=== PATIENT | female | born 1995 | race Caucasian/White ===

== ENCOUNTER 2024-02-25 21:51 | Emergency (ER) | payer BC, OTHER ==
[~2024-02-25] VITALS: Ht 165.1 cm; Wt 66.2 kg
[2024-02-25 22:01] VITALS: BP_SYST 111; PULSE 78; RESP 16; TEMP 97.9; O2SAT 98
[2024-02-25 22:50] LABS: BASOPHILS # (AUTO) 0.2 K/uL (0.0-0.2); BASOPHILS % (AUTO) 2.3 % (0.0-2.0); EOSINOPHILS # (AUTO) 0.4 K/uL (0.0-0.4); EOSINOPHILS % (AUTO) 4.6 % (0.0-4.0); HEMATOCRIT 37.7 % (36-48); HEMOGLOBIN 13.1 g/dL (12.0-16.0); LYMPHOCYTES # (AUTO) 1.7 K/uL (1.0-5.5); LYMPHOCYTES % (AUTO) 19.8 % (20.5-51.5); MEAN CORPUSCULAR HEMOGLOBIN 31 pg (27-31); MEAN CORPUSCULAR HGB CONC 35 % (32-36); MEAN CORPUSCULAR VOLUME 88 fL (79.0-98.0); MONOCYTES # (AUTO) 0.5 K/uL (0.0-1.0); MONOCYTES % (AUTO) 5.7 % (1.7-9.3); NEUTROPHILS % (AUTO) 67.6 % (40.0-70.0); PLATELET COUNT (AUTO) 221 K/uL (130-430); RED BLOOD CELL COUNT(AUTO) 4.27 MIL/uL (4.2-6.2); RED CELL DISTRIBUTION WIDTH 12.6 % (9.0-15.0); WHITE BLOOD COUNT (AUTO) 8.8 K/uL (4.8-10.8)
[2024-02-25 23:15] LABS: ALBUMIN 4.2 g/dL (3.4-4.8); BILIRUBIN,DIRECT 0.1 mg/dL (0.0-0.3); CALCIUM 9.1 mg/dL (8.4-11.0); CREATININE 0.82 mg/dL (0.55-1.30); FREE T4 (FREE THYROXINE) 1.1 ng/dL (0.6-1.6); POTASSIUM 3.9 mmol/L (3.5-5.1); THYROID STIMULATING HORMONE 1.69 uIu/mL (0.34-4.82); TOTAL BILIRUBIN 0.7 mg/dL (0.0-1.0)
[2024-02-25] MEDS: MAG HYDROX/AL HYDROX/SIMETH 30 ML, DICYCLOMINE HCL 20 MG, LIDOCAINE VISCOUS 2% 15ML (PO... PO ONE (23:26)
[2024-02-26 00:30] LABS: BILIRUBIN,URINE NEGATIVE (NEGATIVE); BLOOD, URINE NEGATIVE (NEGATIVE); CLARITY/URINE CLEAR (CLEAR); COLOR,URINE YELLOW (YELLOW); GLUCOSE,URINE NEGATIVE (NEGATIVE); KETONES,URINE 2+ (NEGATIVE); LEUKOCYTE ESTERASE ,URINE TRACE (NEGATIVE); NITRITE, URINE NEGATIVE (NEGATIVE); PROTEIN URINE NEGATIVE (NEGATIVE); UROBILINOGEN,URINE 0.2 (0.2-1.0)
[2024-02-26] MEDS: ONDANSETRON 4 MG ODT TAB PO ONE (00:43)
[2024-02-26 00:51] LABS: BARBITURATE, URINE NEGATIVE (NEG <=200); BENZODIAZEPINE, URINE NEGATIVE (NEG <=150); CANNABINOID, URINE NEGATIVE (NEG <=50); COCAINE, URINE NEGATIVE (NEG <=150); METHAMPHETAMINES SCREEN,URINE NEGATIVE (NEG <=500); OPIATE, URINE NEGATIVE (NEG <=100); PHENCYCLIDINE SCREEN,URINE NEGATIVE (NEG <=25); URINE AMPHETAMINE NEGATIVE (NEG <=500); URINE METHADONE NEGATIVE (NEG <=200); URINE OXYCODONE SCREEN NEGATIVE (NEG <=100)
[2024-02-26 00:52] LABS: UR TRICYCLIC ANTIDEPRESSANTS NEGATIVE (NEG <=300)
[2024-02-26 01:00] LABS: BACTERIA,URINE None Seen /HPF (None Seen)
[2024-02-26] MEDS ORDERED: ASPIRIN 325 MG TABLET PO ONE (01:00)
[2024-02-26] MEDS ORDERED: LORA-259 PO (01:15)
[2024-02-26] MEDS: LORazepam 1 MG TABLET PO ONE (01:15)
[2024-02-26 01:30] VITALS: BP_SYST 111; PULSE 78; RESP 16; TEMP 97.9; O2SAT 98
== END 2024-02-26 01:30 | disposition home or self-care (01) ==
LOC: SED 21:51
DX: K58.8 Other irritable bowel syndrome (principal); R06.02 Shortness of breath; F41.9 Anxiety disorder, unspecified; R10.9 Unspecified abdominal pain; Z79.899 Other long term (current) drug therapy
CPT/HCPCS: 99285; 71045; 80307; 80076; 80048; 84439; 83690; 84443; 85025; 85379; 36415; 93005; 81025; 81001; Q0162; 81000; 81003; 81015; J2001

== ENCOUNTER 2024-03-27 10:04 | Emergency (ER) | payer BC ==
[~2024-03-27] VITALS: Ht 165.1 cm; Wt 63.5 kg
[~2024-03-27 10:04] MED LIST: LORA-259 PO
[2024-03-27 10:17] VITALS: BP_SYST 134; PULSE 80; RESP 17; TEMP 97.6; O2SAT 99
[2024-03-27 10:40] LABS: BASOPHILS % (AUTO) 0.6 % (0.0-2.0); EOSINOPHILS # (AUTO) 0.1 K/uL (0.0-0.4); EOSINOPHILS % (AUTO) 2.3 % (0.0-4.0); HEMOGLOBIN 14.2 g/dL (12.0-16.0); LYMPHOCYTES # (AUTO) 1.1 K/uL (1.0-5.5); LYMPHOCYTES % (AUTO) 16.6 % (20.5-51.5); MEAN CORPUSCULAR HEMOGLOBIN 30 pg (27-31); MEAN CORPUSCULAR HGB CONC 34 % (32-36); MEAN CORPUSCULAR VOLUME 89 fL (79.0-98.0); MONOCYTES # (AUTO) 0.4 K/uL (0.0-1.0); MONOCYTES % (AUTO) 6.2 % (1.7-9.3); NEUTROPHILS # (AUTO) 4.9 K/uL (1.8-7.7); NEUTROPHILS % (AUTO) 74.3 % (40.0-70.0); PLATELET COUNT (AUTO) 227 K/uL (130-430); RED CELL DISTRIBUTION WIDTH 12.7 % (9.0-15.0); WHITE BLOOD COUNT (AUTO) 6.5 K/uL (4.8-10.8)
[2024-03-27] MEDS: NACL 0.9% 1,000 ML IV ONE (10:41)
[2024-03-27] MEDS: ONDANSETRON HCL 4 MG/2 ML VIAL IVP ONE (10:59)
[2024-03-27 11:10] LABS: ALBUMIN 5.3 g/dL (3.4-4.8); BILIRUBIN,DIRECT 0.2 mg/dL (0.0-0.3); CALCIUM 9.6 mg/dL (8.4-11.0); CREATININE 0.77 mg/dL (0.55-1.30); POTASSIUM 4.1 mmol/L (3.5-5.1); TOTAL BILIRUBIN 0.9 mg/dL (0.0-1.0)
[2024-03-27] MEDS: KETOROLAC TROMETHAMINE 30 MG VIAL IVP ONE (11:16)
[2024-03-27] MEDS: MORPHINE 4 MG INJ. 4 MG/ML VIAL IVP ONE (11:23)
[2024-03-27] MEDS: METOCLOPRAMIDE HCL 10 MG/2 ML VIAL IVP ONE (11:25)
[2024-03-27 11:42] LABS: SERUM HCG (QUALITATIVE) NEGATIVE (NEGATIVE)
[2024-03-27] MEDS ORDERED: ONDA-8 TL (11:51)
[2024-03-27 12:21] VITALS: BP_SYST 99; PULSE 87; RESP 18; O2SAT 98
[2024-04-02] MEDS ORDERED: LITH300C2 PO (10:16)
[2024-04-04] MEDS ORDERED: ONDA-8 TL (13:26)
[2024-04-04] MEDS ORDERED: FAMO20TA8 PO (13:26)
== END 2024-03-27 12:22 | disposition home or self-care (01) ==
LOC: SED 10:04
DX: K58.9 Irritable bowel syndrome, unspecified (principal); R11.10 Vomiting, unspecified; Z79.899 Other long term (current) drug therapy
CPT/HCPCS: 99284; 96374; 96375; 96361; 80076; 80048; 84703; 83690; 85025; 36415; J2765; J2405; J2270; J7030; J1885

== ENCOUNTER 2024-04-09 13:34 | Emergency (ER) | payer BC, MEDICAID ==
[~2024-04-09] VITALS: Ht 165.1 cm; Wt 61.2 kg
[~2024-04-09 13:34] MED LIST changes: +FAMO20TA8 PO; +LITH300C2 PO; -LORA-259 PO; +ONDA-8 TL
[2024-04-09 13:51] VITALS: BP_SYST 113; PULSE 120; RESP 19; TEMP 97.5; O2SAT 97
[2024-04-09 14:30] LABS: BASOPHILS % (AUTO) 0.5 % (0.0-2.0); EOSINOPHILS # (AUTO) 0.1 K/uL (0.0-0.4); EOSINOPHILS % (AUTO) 1.6 % (0.0-4.0); HEMATOCRIT 41.8 % (36-48); HEMOGLOBIN 14.2 g/dL (12.0-16.0); LYMPHOCYTES # (AUTO) 1.8 K/uL (1.0-5.5); LYMPHOCYTES % (AUTO) 26.9 % (20.5-51.5); MEAN CORPUSCULAR HEMOGLOBIN 30 pg (27-31); MEAN CORPUSCULAR HGB CONC 34 % (32-36); MEAN CORPUSCULAR VOLUME 89 fL (79.0-98.0); MONOCYTES # (AUTO) 0.7 K/uL (0.0-1.0); MONOCYTES % (AUTO) 10.2 % (1.7-9.3); NEUTROPHILS # (AUTO) 4.1 K/uL (1.8-7.7); NEUTROPHILS % (AUTO) 60.8 % (40.0-70.0); PLATELET COUNT (AUTO) 252 K/uL (130-430); RED BLOOD CELL COUNT(AUTO) 4.72 MIL/uL (4.2-6.2); RED CELL DISTRIBUTION WIDTH 12.9 % (9.0-15.0); WHITE BLOOD COUNT (AUTO) 6.8 K/uL (4.8-10.8)
[2024-04-09] MEDS: MORPHINE 4 MG INJ. 4 MG/ML VIAL IVP ONE (14:37)
[2024-04-09] MEDS: PROCHLORPERAZINE EDISYLATE 10 MG/2 ML VIAL IVP ONE (14:37)
[2024-04-09] MEDS: DIPHENHYDRAMINE INJ 50 MG/ML VIAL IVP ONE (14:37)
[2024-04-09 14:39] LABS: BILIRUBIN,DIRECT 0.2 mg/dL (0.0-0.3); CALCIUM 10.2 mg/dL (8.4-11.0); CREATININE 0.84 mg/dL (0.55-1.30); TOTAL BILIRUBIN 0.9 mg/dL (0.0-1.0); TOTAL PROTEIN, SERUM 8.4 g/dL (6.4-8.3)
[2024-04-09] MEDS ORDERED: DICY10SO PO (15:27)
[2024-04-09] MEDS ORDERED: CETI-80 PO (15:27)
[2024-04-09 15:47] VITALS: BP_SYST 112; PULSE 88; RESP 18; O2SAT 99
== END 2024-04-09 15:45 | disposition home or self-care (01) ==
LOC: SED 13:34
DX: R11.15 Cyclical vomiting syndrome unrelated to migraine (principal); R11.2 Nausea with vomiting, unspecified; F12.90 Cannabis use, unspecified, uncomplicated; Z71.6 Tobacco abuse counseling; Z79.899 Other long term (current) drug therapy; Z79.2 Long term (current) use of antibiotics
CPT/HCPCS: 99284; 96374; 96375; 80076; 80048; 83690; 85025; 36415; J1200; J0780; J2270